=== PATIENT | male | born 1980 | race Hispanic/Latino ===

== ENCOUNTER 2018-01-30 00:28 | Day surgery (SDC) | payer OTHER ==
[2018-01-27 12:02] VITALS: BP 141/94
[2018-01-27 12:30] LABS: BASOPHIL % 0.5 % (0.0-0.2); EOSINOPHIL # 0.1 10^3/uL (0.0-0.2); EOSINOPHIL % 1.9 % (0.0-5.0); HEMOGLOBIN 17.4 g/dL (13.9-16.3); LYMPHOCYTES # 1.9 10^3/uL (1.0-4.8); LYMPHOCYTES % 29.1 % (24.0-44.0); MEAN CELL HGB 27.1 pg (26-34); MEAN CELL HGB CONCENTRATION 32.8 g/dL (33-37); MEAN CORP VOLUME 82.8 fL (78-100); MONOCYTES # 0.8 10^3/uL (0.3-0.8); MONOCYTES % 12.1 % (5.0-12.0); NEUTROPHIL # 3.6 10^3/uL (1.8-7.7); NEUTROPHILS % 56.1 % (41.0-85.0); RED CELL DISTRIBUTION WIDTH 15.2 % (11.5-14.5); WHITE BLOOD CELL 6.5 10^3/uL (4.5-11.0)
[2018-01-27 12:50] LABS: CARBON DIOXIDE 29.4 mmol/L (20.0-32)
[~2018-01-30] VITALS: Ht 170.2 cm; Wt 81.6 kg
[2018-01-30] VITALS (10 sets, daily range): BP systolic 127–139; BP diastolic 74–88
[~2018-01-30 00:28] MED LIST: ALPR0.5T PO; AMOX875T PO; TEST200V3 IM
[2018-01-30] MEDS ORDERED: CEPACOL SORE THROAT LOZENGE MM ONE (00:29)
[2018-01-30] MEDS ORDERED: LACTATED RINGERS 1,000 ML ONE ×2 (04:42→06:29)
[2018-01-30] MEDS ORDERED: LEVAQUIN 100 ML IV ONE (04:43)
[2018-01-30] MEDS ORDERED: LACTATED RINGERS 1,000 ML IV SCH ×2 (06:00→09:30)
[2018-01-30] MEDS ORDERED: SUBLIMAZE ONE (06:28)
[2018-01-30] MEDS ORDERED: TORADOL ONE (06:28)
[2018-01-30] MEDS ORDERED: ZOFRAN ONE (06:28)
[2018-01-30] MEDS ORDERED: DIPRIVAN IV ONE (06:28)
[2018-01-30] MEDS ORDERED: VERSED ONE (06:28)
[2018-01-30] MEDS ORDERED: DECADRON ONE (06:28)
[2018-01-30] MEDS ORDERED: LIDOCAINE 2% VIAL ONE (06:29)
[2018-01-30] MEDS ORDERED: DURAMORPH ONE (06:29)
[2018-01-30] MEDS ORDERED: SODIUM CHLORIDE IR ONE (07:20)
[2018-01-30] MEDS ORDERED: SENSORCAINE-MPF 0.5% VIAL ONE (08:40)
[2018-01-30] MEDS ORDERED: CIPR500T86 PO (09:14)
[2018-01-30] MEDS ORDERED: ACET-685 PO (09:14)
[2018-01-30] MEDS ORDERED: NORCO 7.5MG PO PRN (09:30)
[2018-01-30] MEDS ORDERED: NORCO 7.5MG PO ONE (10:02)
--- NOTE | 2018-01-30 11:31 | OPH ---
DATE OF SURGERY: 01/30/2018 PREOPERATIVE DIAGNOSIS: Solid mass of the left testicle. FINAL DIAGNOSIS: Solid mass of the left testicle. PROCEDURES: Left inguinoscrotal exploration with left radical orchiectomy. DESCRIPTION OF PROCEDURE: The patient was brought to the operating room, was put in supine position on the operating room table. After the patient was given a satisfactory and adequate LMA general anesthesia, the lower abdomen and the genitalia was then prepped and draped aseptically in the usual manner. First, an oblique incision was then done around 1 cm in the left inguinal region. Incision was deepened up to the subcutaneous tissue. All bleeders were clamped and fulgurated. The external oblique fascia was then incised along the length of the incision. After that, the spermatic cord was identified. The ilioinguinal nerve was also identified and this was isolated and also including the vas deferens. A penrose____ was then placed around the spermatic cord and a rubber shod clamp was placed near the external ring occluding the spermatic cord. The spermatic cord was then explored all the way to the internal ring and then we pulled the spermatic cord until the inversion of the scrotum and the left hemiscrotum and the testis was led out all the way up to the left inguinal region. The gubernaculum was then doubly clamped and incised and ligated with 0 silk. The left testis was then properly visualized and palpated and there were some areas of very hard mass in the left testicle, which was most likely a solid tumor. So, at this juncture, the testicle and the spermatic cord was then first clamped at the external ring and then doubly clamped and ligated with 0 silk. After that, the cord and the testis were removed. The vas was also initially divided and was also ligated with a 2-0 silk. After this was done, the area was then irrigated with fluid and there was some area of bleeding, which was properly ligated and fulgurated. After adequate hemostasis, the external oblique fascia was then approximated with the use of 2-0 Vicryl followed by the subcutaneous tissue and this area was again irrigated. After this was done, the skin was approximated with the use of skin eliezer. Pressure dressing was applied in the scrotum and also in the inguinal region and the patient was then awakened and was transferred to the recovery room in stable condition. Freddy Mcelroy MD DR: SHRUTHI/addison JOB# [id number] MEY
== END 2018-01-30 11:00 | disposition home or self-care (01) | DRG 730 ==
LOC: SDC 00:28
PROVIDERS: ATTEND Urology
DX: N50.89 Other specified disorders of the male genital organs (principal); E66.3 Overweight; Z68.28 Body mass index [BMI] 28.0-28.9, adult; Z98.890 Other specified postprocedural states; Z79.899 Other long term (current) drug therapy
CPT/HCPCS: 36415; 54530; 80051; 82565; 84520; 85025; 85610; 85730; 88302; J1100; J1885; J1956; J2001; J2250; J2405; J3010; J3490 ×2; J7030; J7120 ×2; J2274